=== PATIENT | male | born 1940 | race Caucasian/White ===

== ENCOUNTER 2023-10-08 08:26 | Day surgery (SDC) | payer MEDICARE ==
[2023-10-05 11:51] LABS: BASOPHILS # (AUTO) 0.1 X10'3 (0-0.2); BASOPHILS % (AUTO) 0.3 % (0-1); EOSINOPHILS # (AUTO) 0.2 X10'3 (0-0.9); EOSINOPHILS % (AUTO) 1.1 % (0-6); HEMATOCRIT 49.3 % (42.0-52.0); HEMOGLOBIN 16.3 g/dl (14.0-17.9); LYMPHOCYTES # (AUTO) 2.7 X10'3 (1.1-4.8); MEAN CORPUSCULAR HEMOGLOBIN 32.8 PG (27.0-31.0); MEAN CORPUSCULAR HGB CONC 33.1 g/dL (33.0-36.5); MEAN CORPUSCULAR VOLUME 98.9 FL (78-98); MONOCYTES # (AUTO) 1.1 X10'3 (0-0.9); MONOCYTES % (AUTO) 7.5 % (2-12); NEUTROPHILS % (AUTO) 73.1 % (42-75); PLATELET COUNT 264 X10'3 (140-440); RED BLOOD COUNT 4.98 X10'6 (4.70-6.10); RED CELL DISTRIBUTION WIDTH 15.6 % (11.5-14.5)
[2023-10-05 12:02] LABS: ALANINE AMINOTRANSFERASE 48 U/L (12-78); ALBUMIN 3.4 G/DL (3.4-5.0); ALBUMIN/GLOBULIN RATIO 0.9 (1.1-1.5); ALKALINE PHOSPHATASE 79 IU/L (46-116); ANION GAP 7 (8-16); ASPARTATE AMINO TRANSFERASE 24 U/L (10-37); BILIRUBIN,TOTAL 0.5 MG/DL (0.1-1.0); BLOOD UREA NITROGEN 25 MG/DL (7-18); BUN/CREATININE RATIO 21.7 (10.0-20.0); CHLORIDE 102 MMOL/L (99-107); CREATININE 1.15 MG/DL (0.60-1.10); GLUCOSE 95 MG/DL (70-104); POTASSIUM 4.4 MMOL/L (3.5-5.1); SODIUM 137 MMOL/L (135-145); TOTAL CARBON DIOXIDE 28.3 MMOL/L (24-32); TOTAL PROTEIN 7.3 G/DL (6.4-8.2); eGFR 61 ML/MIN
[2023-10-08] VITALS (7 sets, daily range): BP systolic 118–142; BP diastolic 57–77; PULSE 58–70; RESP 11–16; TEMP 97.9; O2SAT 92–98
[~2023-10-08] VITALS: Ht 160 cm; Wt 79.1 kg
[2023-10-08] MEDS: cefazolin 2gm/D5W 100mL 100 ML IV ONE (05:30)
[~2023-10-08 08:26] MED LIST: BENA40TA73 PO; CYAN100070 PO; FLUT1BLS4 INH; LOVA40TA76 PO; OMEG300C2 PO
[2023-10-08] MEDS ORDERED: morphine 4 MG/ML inj SYRINge IV PRN (09:15)
[2023-10-08] MEDS ORDERED: ondansetron/PF 4mg/2ml inj IV PRN (09:15)
[2023-10-08] MEDS ORDERED: morphine 2 MG/ML inj. syringe IV PRN (09:15)
[2023-10-08] MEDS ORDERED: labetalol 20mg/4ml (5mg/ml) syringe IV PRN (09:15)
[2023-10-08] MEDS ORDERED: ringers solution, lacted 1,000 ML IV SCH (09:15)
[2023-10-08] MEDS: ringers solution, lacted 1,000 ML IV SCH (09:41)
[2023-10-08] MEDS: famotidine 20mg tablet PO ONE (09:41)
[2023-10-08] MEDS ORDERED: MIDAZolam 1 MG/ML 5ML VIAL ONE (11:23)
[2023-10-08] MEDS ORDERED: fentaNYL/PF 50MCG/1 ML 2ML syringe ONE (11:23)
[2023-10-08] MEDS: BUPIVAcaine/PF 2.5mg/ml (0.25%) 10ml vial ONE (14:44)
[2023-10-08] MEDS: LIDOcaine 2% (20mg/ml) 5ml vial ONE (14:45)
== END 2023-10-08 12:41 | disposition home or self-care (01) ==
LOC: PRE-OP 08:26
PROVIDERS: ATTEND Orthopaedic Surgery Hand Surgery
DX: G56.03 Carpal tunnel syndrome, bilateral upper limbs (principal); E78.5 Hyperlipidemia, unspecified; E78.00 Pure hypercholesterolemia, unspecified; J44.9 Chronic obstructive pulmonary disease, unspecified; I10 Essential (primary) hypertension; Z85.828 Personal history of other malignant neoplasm of skin; Z79.899 Other long term (current) drug therapy; Z87.891 Personal history of nicotine dependence
CPT/HCPCS: 36415; 64721; 80053; 82948; 85025; 93005; J0690; J2001; J2250; J3010; J3490; J7120; Z7512; Z7610; A4215; A6449